=== PATIENT | female | born 1995 | race Caucasian/White ===

== ENCOUNTER 2021-06-26 12:29 | Emergency (ER) | payer OTHER ==
[2021-06-26 12:45] VITALS: BP 156/81; PULSE 78; TEMP 97.9; BMI 26.1
[2021-06-26] MEDS ORDERED: KETOROLAC TROMETHAMINE 60 MG/2 ML VIAL IM ONE (13:19)
[2021-06-26] MEDS ORDERED: KETOROLAC TROMETHAMINE 60 MG/2 ML VIAL ONE (13:22)
== END 2021-06-26 13:26 | disposition home or self-care (01) ==
LOC: JER 12:29
PROC: 3E0233Z Introduction of Anti-inflammatory into Muscle, Percutaneous Approach (ICD-10-PCS; principal; 2021-06-26)
DX: N92.1 Excessive and frequent menstruation with irregular cycle (principal)
CPT/HCPCS: 99284-25

== ENCOUNTER 2021-11-24 13:27 | Emergency (ER) | payer OTHER ==
[2021-11-24 13:59] VITALS: PULSE 71; TEMP 98.1; BMI 23.1
[2021-11-24] MEDS ORDERED: SODIUM CHLORIDE 0.9% 500 ML INFUS.BAG IV ONE (15:09)
[2021-11-24] MEDS ORDERED: ACETAMINOPHEN 1000 MG/100 ML BAG IVPB ONE (15:09)
[2021-11-24] MEDS ORDERED: ACETAMINOPHEN INJECTION 100 ML IVPB ONE (15:38)
[2021-11-24 16:59] LABS: EPI CELLS 24 /uL (0-25.1); HYALINE CASTS 17 /uL (0-3.1); PH,URINE 7.5 (5.0-8.0); URINE APPEARANCE CLEAR; URINE BACTERIA 6 /uL (0-1359); URINE BILIRUBIN NEGATIVE (NEGATIVE); URINE COLOR YELLOW; URINE GLUCOSE (UA) NEGATIVE (NEGATIVE); URINE KETONE NEGATIVE (NEGATIVE); URINE LEUK ESTERASE NEGATIVE (NEGATIVE); URINE NITRITE NEGATIVE (NEGATIVE); URINE PROTEIN 2+ (NEGATIVE); URINE UROBILINOGEN 0.2 mg/dL (0.2-1.0); URINE WBC 52 /uL (0-25.8)
[2021-11-24 17:05] LABS: BASO % 0.3 % (0-2.0); EOS % 0.9 % (0-4.5); HEMATOCRIT 33.1 % (32.4-45.2); HEMOGLOBIN 11.2 GM/dL (10.7-15.3); LYMPH % 22.4 % (8-40); MCH 28.9 pg (25.7-33.7); MCHC 33.8 g/dl (32.0-36.0); MEAN CELL VOLUME 85.4 fl (80-96); MEAN PLT VOLUME 10.6 fl (7.5-11.1); MONO % 5.1 % (3.8-10.2); NEUT % 71.3 % (42.8-82.8); RBC 3.87 M/mm3 (3.60-5.2); RDW 15.5 % (11.6-15.6); WHITE BLOOD COUNT 7.3 K/mm3 (4.0-10.0)
[2021-11-24 17:22] LABS: ALBUMIN 3.8 g/dl (3.4-5.0); BLOOD UREA NITROGEN 12.6 mg/dL (7-18); CALCIUM 9.3 mg/dL (8.5-10.1)
[2021-11-24 17:25] LABS: CREATININE 0.7 mg/dL (0.55-1.3)
[2021-11-24 17:26] LABS: URINE RBC 46393.6 /uL (0-23.9)
[2021-11-24 17:27] LABS: BILIRUBIN,TOTAL 0.4 mg/dL (0.2-1); TOT PROT 6.8 g/dl (6.4-8.2)
[2021-11-24 17:42] LABS: PLATELET COUNT 227 10^3/uL (134-434); PLATELET ESTIMATE ADEQUATE
[2021-11-24 18:06] VITALS: BP 113/85
== END 2021-11-24 18:11 | disposition home or self-care (01) ==
LOC: JER 13:27
PROC: 3E0333Z Introduction of Anti-inflammatory into Peripheral Vein, Percutaneous Approach (ICD-10-PCS; principal; 2021-11-24)
DX: R55 Syncope and collapse (principal)
CPT/HCPCS: 36415; 80053; 81003; 82962; 84703; 85025; 87086; 93005; 93010; 99284-25

== ENCOUNTER 2021-12-16 08:33 | Emergency (ER) | payer OTHER ==
[2021-12-16 09:04] VITALS: BP 136/83; PULSE 78; TEMP 98.2; BMI 23.1
[2021-12-16] MEDS ORDERED: ACETAMINOPHEN 500 MG TABLET (FP) PO ONE (09:24)
[2021-12-16] MEDS ORDERED: ACETAMINOPHEN 500 MG TABLET (FP) ONE (09:54)
[2021-12-17 16:09] LABS: SARS-CoV-2 NAA Not Detected (Not Detected)
== END 2021-12-16 11:46 | disposition home or self-care (01) ==
LOC: JER 08:33
DX: J02.9 Acute pharyngitis, unspecified (principal); R51.9 Headache, unspecified
CPT/HCPCS: 87651; 87804; 99283-25; C9803-CS; U0003; U0005

== ENCOUNTER 2022-04-18 14:50 | Emergency (ER) | payer OTHER ==
[2022-04-18 14:59] VITALS: TEMP 98.6; BMI 22.6
[2022-04-18] MEDS ORDERED: ACETAMINOPHEN 325 MG TABLET (FP) PO ONE (15:29)
[2022-04-18] MEDS ORDERED: ACETAMINOPHEN 325 MG TABLET (FP) ONE (15:33)
[2022-04-18 17:41] VITALS: BP 123/79; PULSE 85; RESP 16
== END 2022-04-18 17:38 | disposition home or self-care (01) ==
LOC: JER 14:50
DX: E16.2 Hypoglycemia, unspecified (principal)
CPT/HCPCS: 82962; 84703; 93005; 93010; 99284-25

== ENCOUNTER 2022-06-29 15:54 | Emergency (ER) | payer OTHER ==
[2022-06-29 16:01] VITALS: BP 131/72; PULSE 81; RESP 16; TEMP 99; BMI 23.2
== END 2022-06-29 18:01 | disposition home or self-care (01) ==
LOC: JERFT 15:54 → JER 15:54 → JERFT 18:01
DX: Z32.01 Encounter for pregnancy test, result positive (principal)
CPT/HCPCS: 84703; 99282-25

== ENCOUNTER 2022-07-10 15:15 | Emergency (ER) | payer OTHER ==
[2022-07-10 15:51] VITALS: BP 113/68; PULSE 81; RESP 17; TEMP 98; BMI 23.2
[2022-07-10] MEDS ORDERED: ONDANSETRON *ODT* 4 MG TABLET SL ONE (16:47)
[2022-07-10] MEDS ORDERED: ONDANSETRON *ODT* 4 MG TABLET ONE (16:54)
[2022-07-10 18:02] LABS: BASO % 0.3 % (0-2.0); EOS % 1.1 % (0-4.5); HEMATOCRIT 41.1 % (32.4-45.2); HEMOGLOBIN 13.1 GM/dL (10.7-15.3); LYMPH % 17.2 % (8-40); MCH 27.8 pg (25.7-33.7); MEAN CELL VOLUME 86.9 fl (80-96); MEAN PLT VOLUME 10.5 fl (7.5-11.1); MONO % 5.9 % (3.8-10.2); NEUT % 75.5 % (42.8-82.8); PLATELET COUNT 205 10^3/uL (134-434); RBC 4.73 M/mm3 (3.60-5.2); RDW 15.5 % (11.6-15.6); WHITE BLOOD COUNT 8.4 K/mm3 (4.0-10.0)
[2022-07-10 18:05] LABS: PH,URINE 6.5 (5.0-8.0); URINE APPEARANCE CLEAR; URINE BILIRUBIN NEGATIVE (NEGATIVE); URINE COLOR YELLOW; URINE GLUCOSE (UA) NEGATIVE (NEGATIVE); URINE KETONE NEGATIVE (NEGATIVE); URINE LEUK ESTERASE NEGATIVE (NEGATIVE); URINE NITRITE NEGATIVE (NEGATIVE); URINE PROTEIN NEGATIVE (NEGATIVE); URINE UROBILINOGEN 0.2 mg/dL (0.2-1.0)
[2022-07-10 18:29] LABS: BLOOD UREA NITROGEN 11.2 mg/dL (7-18)
[2022-07-10 18:33] LABS: CREATININE 0.7 mg/dL (0.55-1.3)
== END 2022-07-10 19:45 | disposition home or self-care (01) ==
LOC: JER 15:15
DX: O20.9 Hemorrhage in early pregnancy, unspecified (principal); Z3A.01 Less than 8 weeks gestation of pregnancy
CPT/HCPCS: 36415; 76817-TC; 80048; 81003; 84702; 85025; 86850; 86900; 86901; 87086; 99284-25; Q0162